=== PATIENT | male | born 1980 | race Asian ===

== ENCOUNTER 2018-03-09 14:40 | Emergency (ER) | payer OTHER ==
[2018-03-09 15:11] LABS: PLATELET COUNT 280 K/uL (142-355)
[2018-03-09 15:19] LABS: POTASSIUM 3.9 mmol/L (3.6-5.2); SODIUM 135 mmol/L (136-145)
[2018-03-09 17:30] VITALS: BP 133/89; TEMP 97.9
== END 2018-03-09 17:30 | disposition short-term general hospital (02) ==
LOC: ED 14:40
PROVIDERS: Family Medicine
DX: I20.8 Other forms of angina pectoris (principal); R94.31 Abnormal electrocardiogram [ECG] [EKG]
CPT/HCPCS: 36415; 80053; 81000; 84484; 85027; 93005; 96372; 99284; J1815

== ENCOUNTER 2018-03-09 17:37 | Outpatient (CLI) | payer OTHER | END 2018-03-09 18:11 | disposition short-term general hospital (02) | LOC: AMB 17:37 | DX: I20.8 Other forms of angina pectoris (principal); R94.31 Abnormal electrocardiogram [ECG] [EKG] | CPT/HCPCS: A0425; A0429 ==

== ENCOUNTER 2018-07-22 15:00 | Outpatient (CLI) | payer OTHER | END 2018-07-22 20:55 | disposition home or self-care (01) | LOC: LAB 15:00 | DX: L03.012 Cellulitis of left finger (principal) | CPT/HCPCS: 87070; 87076; 87205 ==

== ENCOUNTER 2019-02-14 08:52 | Outpatient (CLI) | payer OTHER ==
[2019-02-14 10:23] LABS: PLATELET COUNT 285 K/uL (142-355)
[2019-02-14 10:56] LABS: POTASSIUM 3.7 mmol/L (3.6-5.2)
== END 2019-02-14 19:50 | disposition home or self-care (01) ==
LOC: RAD 08:52
PROVIDERS: Physician Assistant
DX: I10 Essential (primary) hypertension (principal); R51 Headache; E11.9 Type 2 diabetes mellitus without complications; Z79.4 Long term (current) use of insulin
CPT/HCPCS: 36415; 80053; 80061; 83036; 84153; 84443; 85027; 93005

== ENCOUNTER 2019-06-03 21:54 | Emergency (ER) | payer OTHER ==
[~2019-06-03] VITALS: Ht 185.4 cm; Wt 108.9 kg
[2019-06-03 22:00] VITALS: TEMP 97.7
[2019-06-03 22:39] VITALS: BP 140/88
== END 2019-06-03 22:40 | disposition home or self-care (01) ==
LOC: ED 21:54
DX: M77.12 Lateral epicondylitis, left elbow (principal)
CPT/HCPCS: 99282

== ENCOUNTER 2019-10-15 00:58 | Observation (INO) | payer OTHER ==
[2019-10-15] VITALS (15 sets, daily range): BP systolic 117–177; BP diastolic 76–115; TEMP 97.8–98.6; Ht 185.4 cm; Wt 114.1 kg
[~2019-10-15] VITALS: Ht 185.4 cm; Wt 114.1 kg
[2019-10-15 01:19] LABS: PLATELET COUNT 231 K/uL (142-355)
[2019-10-15 01:39] LABS: POTASSIUM 4.5 mmol/L (3.6-5.2); SODIUM 135 mmol/L (136-145)
--- NOTE | 2019-10-15 06:31 | NUR ---
10/15/2019 0549 PT TO ROOM 1112 DX NEW ONSET AFIB,DIABETES,HTN.PT ASSESSEMENT COMPLETED.PT ORIENTED TO ROOM.18 GAUDGE TO RT AC INTACT. PRESENT IN ROOM CALL LIGHT WITHIN REACH.CC
[2019-10-15] MEDS ORDERED: AMLODIPINE BESYLATE PO (07:51)
--- NOTE | 2019-10-15 07:51 | NUR ---
PATIENT WAS ADMITTED WITH CP AND IS A NEW ONSET AFIB, DM AND HTN AND IS ON 1800 CALORIE DIET PLAN AND IS ON INSULIN AND LABS REVEAL NA AND CL DEPRESSED AND CREAT, GL 535/474, AND TOTAL PROTEIN ALL ELEVATED AND IS 6'1" AT 251.9 AND IS A 38YOBM; IBW = 184+/-10% (166-202 LBS.) AND KCAL NEEDS X 25 = 2100, X 30 = 2500, X 35 = 2900 AND X 40 = 3400 KCAL/MOSES. PTOTEIN NEEDS X .8 TO 1.5 = 67 TO 125 GRAMS PER DAY AND FLUIDS FOR WEIGHT X 25 TO 30 - 2900 TO 3400 ML/CC Q DAY AND BMI = 33.24 CLASS I OBESITY AND IS 137% IBW. RECOMMEND: 1-2200 CALORIE ADA HIGH FIBER CARDIAC DIET PLAN 2-MONITOR ABNORMAL LABS
[2019-10-15] MEDS ORDERED: BASAGLAR K100 UNIT/M SC (07:55)
--- NOTE | 2019-10-15 08:09 | NUR ---
DR MARTIN VISITED CHECKED PATIENT. PATIENT RESTING IN BED NO COMPLAINTS AT PRESENT. MONITOR SHOWING HR 65 NSR. PT HAS CONVERTED TO NSR. BROUGHT IN HOME MEDS. HOME MEDS UPDATED. RECIEVED NEW ORDERS. PATIENT DENIES CHEST PAINS. IV FLUIDS INFUSING AT 120.
--- NOTE | 2019-10-15 12:00 | NUR ---
BLOOD SUGAR 233, RECIEVED 4 UNITS REGULAR INSULIN BEFORE LUNCH. PATIENT RESTING IN BED DENIES PAIN. MONITOR SHOWING HR 85 NSR. NO COMPLAINTS.
--- NOTE | 2019-10-15 15:20 | NUR ---
DR MARTIN VISITED EARLIER CHECKING PATIENT, RECIEVED ORDERS FOR DISCHARGE. REMOVED IV RIGHT AC. REMOVED TELE UNIT. CONTINUES IN NSR HR 85. DENIES CHEST PAINS. REVIEWED DISCHARGE ORDERS AND MEDS PT VERBALIZED UNDERSTANDING. PATIENT'S FAMILY HERE TO PICK HIM UP. AMBULATED TO FRONT OF HOSPITAL DISCHARGED TO PRIVATE CAR TO GO HOME WITH FAMILY.
== END 2019-10-15 15:20 | disposition home or self-care (01) ==
LOC: ED 00:58 → MED/SURG 04:15
PROVIDERS: Emergency Medicine; ADMIT Internal Medicine Endocrinology, Diabetes & Metabolism
DX: I48.0 Paroxysmal atrial fibrillation (principal); E11.65 Type 2 diabetes mellitus with hyperglycemia; E66.8 Other obesity; Z68.33 Body mass index [BMI] 33.0-33.9, adult; I10 Essential (primary) hypertension
CPT/HCPCS: 36415; 80053; 82550; 82553; 82947; 83880; 84484; 85027; 85379; 93005; 96360; 96365; 96372; 96375; 96376; 99220; 99284; G0378; J1650; J1815; J3490

== ENCOUNTER 2019-10-27 00:21 | Emergency (ER) | payer OTHER ==
[~2019-10-27] VITALS: Ht 185.4 cm; Wt 113.9 kg
[~2019-10-27 00:21] MED LIST: AMLODIPINE BESYLATE PO; BASAGLAR K100 UNIT/M SC
[2019-10-27 01:15] LABS: PLATELET COUNT 261 K/uL (142-355)
[2019-10-27 01:42] LABS: POTASSIUM 3.4 mmol/L (3.6-5.2); SODIUM 136 mmol/L (136-145)
[2019-10-27 04:04] VITALS: TEMP 98.5
[2019-10-27 04:49] VITALS: BP 135/75
== END 2019-10-27 04:50 | disposition home or self-care (01) ==
LOC: ED 00:21
PROVIDERS: Emergency Medicine
DX: I48.91 Unspecified atrial fibrillation (principal); F41.8 Other specified anxiety disorders; R79.0 Abnormal level of blood mineral; E87.6 Hypokalemia
CPT/HCPCS: 80053; 82550; 83735; 83880; 84484; 85027; 87502; 93005; 96360; 96361; 96365; 99284; J3475

== ENCOUNTER 2020-01-31 13:40 | Outpatient (CLI) | payer OTHER ==
[~2020-01-31 13:40] MED LIST changes: +ABACAVIR SULFAT1 TAB PO; +ADMELOG SO100 UNIT/M SC; +METO50TA27 PO; +XARELTO20 MG PO
[2020-01-31 14:06] LABS: PLATELET COUNT 252 K/uL (142-355)
== END 2020-01-31 19:50 | disposition home or self-care (01) ==
LOC: LAB 13:40
PROVIDERS: Internal Medicine
DX: E11.9 Type 2 diabetes mellitus without complications (principal); I48.91 Unspecified atrial fibrillation; Z12.5 Encounter for screening for malignant neoplasm of prostate
CPT/HCPCS: 80053; 80061; 81000; 82043; 82570; 83036; 84153; 84439; 84443; 85027

== ENCOUNTER 2020-05-07 06:05 | Emergency (ER) | payer OTHER ==
[~2020-05-07] VITALS: Ht 185.4 cm; Wt 104.3 kg
[2020-05-07 06:10] VITALS: TEMP 98.7
[2020-05-07 06:32] LABS: PLATELET COUNT 266 K/uL (142-355)
[2020-05-07 06:34] LABS: POTASSIUM 3.6 mmol/L (3.6-5.2); SODIUM 135 mmol/L (136-145)
[2020-05-07 07:05] LABS: PARTIAL THROMBOPLASTIN TIME 25.2 SECONDS (24.5-33.6)
[2020-05-07 07:31] VITALS: BP 126/78
== END 2020-05-07 07:31 | disposition home or self-care (01) ==
LOC: ED 06:05
PROVIDERS: Hospitalist
DX: R07.89 Other chest pain (principal); I10 Essential (primary) hypertension; K21.9 Gastro-esophageal reflux disease without esophagitis
CPT/HCPCS: 36415; 80053; 82550; 83880; 84484; 85027; 85610; 85730; 93005; 99283; 99284